=== PATIENT | female | born 1945 | race Caucasian/White ===

== ENCOUNTER → 2020-11-14 09:52 | Outpatient (CLI) | payer MEDICARE, SELFPAY ==
--- NOTE | 2020-11-14 | DI.RAD.S_ITS ---
PROCEDURE: FL CATHETER PATENCY COMPARISON: None. INDICATIONS: Malignant neoplasm of lower lobe, left bronchus or FINDINGS: Left chest wall Port-A-Cath noted. Tip of Port-A-Cath projects to the mid SVC. Contrast injection demonstrated patent Port-A-Cath catheter with free flow of contrast material into the SVC and rapid flow of the contrast way from the tip of the catheter. Small fibrin sheath noted at the tip of the catheter. IMPRESSION: Patent Port-A-Cath catheter. Dictated by: Ladonna Juarez MD, PhD on 11/14/2020 at 12:40 Approved by: Ladonna Juarez MD, PhD on 11/14/2020 at 12:43
--- NOTE | 2020-11-14 11:07 | PC.NURSE ---
port accessed with lidocain with one a
--- NOTE | 2020-11-14 11:08 | PC.NURSE ---
[facility] accessed with no problems. Lidocain used, able to draw back blood and flush with no problems. After procedure line flushed with saline and line flushed with Hep.
== END ==
PROVIDERS: Family Provider Family Medicine Geriatric Medicine; PCP Family Medicine; Referring Provider Internal Medicine; Visit Provider Internal Medicine
DX: Z45.2 Encounter for adjustment and management of vascular access device (principal); C34.32 Malignant neoplasm of lower lobe, left bronchus or lung
CPT/HCPCS: 76000